=== PATIENT | female | born 1970 | race Caucasian/White ===

== ENCOUNTER 2020-11-12 10:42 | Inpatient (IN) ==
[2020-11-12] MEDS ORDERED: LIDOCAINE 1% 20 ML VIAL INFILTRAT STA (17:37)
[2020-11-12] MEDS ORDERED: SODIUM CHLORIDE 0.9% 1,000 ML IV STA (17:38)
[2020-11-12] MEDS ORDERED: CLINDAMYCIN INJ 600 MG/50 ML PREMIX IV STA (17:38)
[2020-11-12 18:19] LABS: Basophils # 0.1 10*3/uL (0.0-0.2); Basophils % 0.4 % (0.0-0.8); Eosinophils % 0.2 % (0.00-10.9); Hematocrit 45.4 VOL% (35.7-47.0); Hemoglobin 15.2 GM/DL (12.0-16.0); Immature Granulocytes % 0.8 %; Lymphocytes # 1.3 10*3/uL (1.4-4.0); Lymphocytes % 11.1 % (21.3-54.2); Mean Corpuscular HGB Conc 33.5 GM/DL (32-36); Mean Corpuscular Volume 92.7 FL (87-102); Mean Platelet Volume 12.3 FL (9.6-12.0); Monocytes % 9.7 % (1.7-12.7); Neutrophils % 77.8 % (38.7-73.9); Platelet Count 330 T/CUMM (130-400); Red Cell Distribution Width 13.1 % (9.3-17.3); White Blood Count 11.9 T/CUMM (4-12)
[2020-11-12 18:44] LABS: Bilirubin,Total 0.6 MG/DL (0.20-1.00); Calcium 10.5 MG/DL (8.5-10.1); Osmolality,Calculated 294.4 MOS/KG (273-304); Potassium 3.6 MMOL/L (3.5-5.1); Total Protein 7.9 G/DL (6.4-8.2)
[2020-11-12] MEDS ORDERED: INSULIN REGULAR 100 UNIT/ML IV STA ×2 (19:10→21:41)
[2020-11-12 20:14] LABS: ABG Base Excess -6.7 MMOL/L (-2.5-2.5); ABG HCO3 18.2 MMOL/L (20-26); ABG Oxygen Saturation 95.1 % (95-100); ABG PCO2 34.6 MM HG (35-48); ABG PH 7.338 (7.35-7.45); ABG PO2 79.9 MM HG (80-95); ABG TCO2 19.2 MMOL/L (23-27); Allen Test Positive; Pt O2 Delivery Device Room Air
[2020-11-12] MEDS ORDERED: MAGNESIUM SULF RIDER 2 GM/50 ML PREMIX IV PRN (21:03)
[2020-11-12] MEDS ORDERED: SODIUM CHLORIDE 0.9% 1,000 ML IV ONE (21:03)
[2020-11-12] MEDS ORDERED: POTASSIUM CHLORIDE RIDER 10 MEQ/100 ML PREMIX IV PRN (21:03)
[2020-11-12] MEDS ORDERED: DEXTROSE 50% 25 GM/50 ML VIAL IV PRN ×3 (21:03→21:49)
[2020-11-12] MEDS ORDERED: MAGNESIUM SULF RIDER 4 GM/100 ML PREMIX IV PRN (21:03)
[2020-11-12] MEDS ORDERED: SODIUM BICARB INJ 100 MEQ in STERILE WATER INJ 400 ML IV PRN (21:03)
[2020-11-12 21:29] LABS: Albumin 2.9 G/DL (3.4-5.0); Bilirubin,Total 0.5 MG/DL (0.20-1.00); Calcium 10.4 MG/DL (8.5-10.1); Osmolality,Calculated 287.8 MOS/KG (273-304); Total Protein 7.9 G/DL (6.4-8.2)
[2020-11-12] MEDS ORDERED: POTASSIUM CHLORIDE 20 MEQ TABLET PO STA (21:37)
[2020-11-12] MEDS ORDERED: PROMETHAZINE 25 MG/1 ML VIAL IM PRN (21:49)
[2020-11-12] MEDS ORDERED: GLUCAGON 1 MG VIAL IM PRN (21:49)
[2020-11-12] MEDS ORDERED: guaiFENesin/DM ER 600-30 MG TABLET PO PRN (21:49)
[2020-11-12] MEDS ORDERED: NICOTINE 21 MG/24 HR PATCH TRANSDERM PRN (21:49)
[2020-11-12] MEDS ORDERED: ONDANSETRON 4 MG/2 ML VIAL IV PRN (21:49)
[2020-11-12] MEDS ORDERED: diphenhydrAMINE CAP 25 MG CAPSULE PO PRN (21:49)
[2020-11-12] MEDS ORDERED: ZALEPLON 5 MG CAPSULE PO PRN (21:49)
[2020-11-12] MEDS ORDERED: MORPHINE 2 MG/1 ML SYRINGE IV PRN (21:49)
[2020-11-12] MEDS ORDERED: hydrALAZINE 20 MG/1 ML VIAL IV PRN (21:49)
[2020-11-12 22:41] LABS: Osmolality,Calculated 290.5 MOS/KG (273-304); Potassium 3.1 MMOL/L (3.5-5.1)
[2020-11-12] MEDS: SODIUM CHLORIDE 0.9% 1,000 ML IV SCH (23:30)
[2020-11-13] MEDS: CLINDAMYCIN INJ 600 MG/50 ML PREMIX IV SCH ×4 (00:01→18:03)
[2020-11-13 00:52] LABS: Basophils # 0.1 10*3/uL (0.0-0.2); Basophils % 0.5 % (0.0-0.8); Eosinophils # 0.1 10*3/uL (0.0-0.87); Eosinophils % 0.6 % (0.00-10.9); Hematocrit 42.1 VOL% (35.7-47.0); Hemoglobin 14.7 GM/DL (12.0-16.0); Immature Granulocytes % 0.8 %; Lymphocytes # 1.9 10*3/uL (1.4-4.0); Lymphocytes % 16.1 % (21.3-54.2); Mean Corpuscular HGB Conc 34.9 GM/DL (32-36); Mean Corpuscular Volume 91.9 FL (87-102); Mean Platelet Volume 11.9 FL (9.6-12.0); Monocytes % 9.8 % (1.7-12.7); Neutrophils % 72.2 % (38.7-73.9); Platelet Count 308 T/CUMM (130-400); Red Blood Count 4.58 MC/CUMM (3.8-5.5); Red Cell Distribution Width 12.9 % (9.3-17.3)
[2020-11-13 01:04] LABS: Calcium 9.5 MG/DL (8.5-10.1); Osmolality,Calculated 284.5 MOS/KG (273-304); Potassium 3.2 MMOL/L (3.5-5.1)
[2020-11-13] MEDS: SODIUM CHLORIDE 0.9% 1,000 ML IV SCH ×3 (01:25→03:09)
[2020-11-13] MEDS ORDERED: GLUCAGON 1 MG VIAL IM PRN (01:38)
[2020-11-13] MEDS ORDERED: DEXTROSE 50% 25 GM/50 ML VIAL IV PRN (01:38)
[2020-11-13] MEDS ORDERED: HEPARIN 5,000 UNIT/1 ML VIAL SUBCUT SCH (02:00)
[2020-11-13] MEDS: INSULIN GLARGINE 100 UNIT/ML SUBCUT SCH ×2 (02:20→10:36)
[2020-11-13] MEDS: SODIUM CHLORIDE 0.45% 1,000 ML IV SCH ×2 (06:05→13:38)
[2020-11-13 06:37] LABS: Calcium 8.7 MG/DL (8.5-10.1); Osmolality,Calculated 289.8 MOS/KG (273-304); Potassium 3.4 MMOL/L (3.5-5.1)
[2020-11-13] MEDS: INSULIN REGULAR 100 UNIT/ML SUBCUT SCH ×3 (06:45→17:59)
[2020-11-13 09:20] LABS: Calcium 9.1 MG/DL (8.5-10.1); Osmolality,Calculated 279.5 MOS/KG (273-304); Potassium 3.3 MMOL/L (3.5-5.1)
[2020-11-13] MEDS: PANTOPRAZOLE 40 MG TABLET PO SCH (10:37)
[2020-11-13] MEDS: POTASSIUM CHLORIDE 20 MEQ TABLET PO PRN ×2 (12:38→12:44)
[2020-11-13 14:51] LABS: Calcium 9.1 MG/DL (8.5-10.1); Osmolality,Calculated 278.7 MOS/KG (273-304); Potassium 3.2 MMOL/L (3.5-5.1)
[2020-11-13 18:18] LABS: Osmolality,Calculated 283.4 MOS/KG (273-304); Potassium 3.5 MMOL/L (3.5-5.1)
[2020-11-13] MEDS ORDERED: INSULIN LISPRO 100 UNIT/ML SUBCUT SCH (21:00)
[2020-11-13] MEDS ORDERED: INSULIN GLARGINE 100 UNIT/ML SUBCUT STA (22:47)
[2020-11-14] MEDS: SODIUM CHLORIDE 0.45% 1,000 ML IV SCH ×4 (00:37→15:04)
[2020-11-14] MEDS: CLINDAMYCIN INJ 600 MG/50 ML PREMIX IV SCH ×4 (00:37→18:13)
[2020-11-14] MEDS: INSULIN REGULAR 100 UNIT/ML SUBCUT SCH ×5 (00:37→18:13)
[2020-11-14] MEDS: INSULIN LISPRO 100 UNIT/ML SUBCUT SCH ×3 (08:09→16:14)
[2020-11-14] MEDS: LOSARTAN 50 MG TABLET PO SCH (09:05)
[2020-11-14] MEDS: PANTOPRAZOLE 40 MG TABLET PO SCH (09:05)
[2020-11-14] MEDS: INSULIN GLARGINE 100 UNIT/ML SUBCUT SCH (09:06)
[2020-11-14] MEDS: ENOXAPARIN 40 MG/0.4 ML SYRINGE SUBCUT SCH (09:32)
[2020-11-14] MEDS ORDERED: BUPIVACAINE MPF 0.25% 30 ML VIAL ONE (10:31)
[2020-11-14] MEDS ORDERED: LIDOCAINE 1%/EPI INJ 20 ML VIAL ONE (10:31)
[2020-11-14] MEDS: metFORMIN 500 MG TABLET PO SCH ×2 (10:58→20:56)
[2020-11-14] MEDS ORDERED: MIDAZOLAM 2 MG/2 ML VIAL ONE (11:40)
[2020-11-14] MEDS ORDERED: fentaNYL 100 MCG/2 ML VIAL ONE (11:42)
[2020-11-14] MEDS ORDERED: ALBUTEROL/IPRATROPIUM 3 ML NEB RESP TX ONE ×2 (12:14)
[2020-11-14] MEDS ORDERED: SUCCINYLCHOLINE 200 MG/10 ML VIAL ONE (12:17)
[2020-11-14] MEDS ORDERED: LIDOCAINE 2% 5 ML VIAL ONE (12:17)
[2020-11-14] MEDS ORDERED: propofoL 200 MG/20 ML VIAL IV ONE (12:17)
[2020-11-14] MEDS ORDERED: SEVOFLURANE 1 UNIT/15 MINUTE INH ONE (12:17)
[2020-11-15] MEDS: CLINDAMYCIN INJ 600 MG/50 ML PREMIX IV SCH ×5 (00:41→23:20)
[2020-11-15] MEDS: INSULIN REGULAR 100 UNIT/ML SUBCUT SCH ×4 (00:51→17:30)
[2020-11-15] MEDS: SODIUM CHLORIDE 0.45% 1,000 ML IV SCH (02:04)
[2020-11-15 04:55] LABS: Basophils # 0.1 10*3/uL (0.0-0.2); Basophils % 0.7 % (0.0-0.8); Eosinophils # 0.1 10*3/uL (0.0-0.87); Eosinophils % 1.3 % (0.00-10.9); Hematocrit 39.4 VOL% (35.7-47.0); Hemoglobin 13.2 GM/DL (12.0-16.0); Immature Granulocytes % 1.1 %; Immature Granulocytes Absolute 0.08 #; Lymphocytes # 2.3 10*3/uL (1.4-4.0); Lymphocytes % 30.4 % (21.3-54.2); Mean Corpuscular HGB Conc 33.5 GM/DL (32-36); Mean Corpuscular Volume 92.9 FL (87-102); Mean Platelet Volume 12.2 FL (9.6-12.0); Monocytes % 9.1 % (1.7-12.7); Neutrophils % 57.4 % (38.7-73.9); Platelet Count 250 T/CUMM (130-400); Red Blood Count 4.24 MC/CUMM (3.8-5.5); Red Cell Distribution Width 13.1 % (9.3-17.3); White Blood Count 7.6 T/CUMM (4-12)
[2020-11-15 05:13] LABS: Calcium 8.6 MG/DL (8.5-10.1); Osmolality,Calculated 280.7 MOS/KG (273-304); Potassium 2.6 MMOL/L (3.5-5.1)
[2020-11-15] MEDS: POTASSIUM CHLORIDE 20 MEQ TABLET PO PRN ×5 (07:41→23:19)
[2020-11-15] MEDS: LOSARTAN 50 MG TABLET PO SCH (09:08)
[2020-11-15] MEDS: metFORMIN 500 MG TABLET PO SCH ×2 (09:09→20:17)
[2020-11-15] MEDS: PANTOPRAZOLE 40 MG TABLET PO SCH (09:09)
[2020-11-15] MEDS: POTASSIUM CHLORIDE 20 MEQ TABLET PO SCH (09:09)
[2020-11-15] MEDS: INSULIN GLARGINE 100 UNIT/ML SUBCUT SCH (09:11)
[2020-11-15] MEDS: INSULIN LISPRO 100 UNIT/ML SUBCUT SCH ×3 (09:12→16:42)
[2020-11-15] MEDS: ENOXAPARIN 40 MG/0.4 ML SYRINGE SUBCUT SCH (09:13)
[2020-11-16] MEDS: INSULIN REGULAR 100 UNIT/ML SUBCUT SCH ×3 (00:17→12:07)
[2020-11-16] MEDS: CLINDAMYCIN INJ 600 MG/50 ML PREMIX IV SCH (06:43)
[2020-11-16] MEDS ORDERED: SULFAMETHOX/TRIMETHOPRIM 800-160 MG TABLET PO SCH (09:00)
[2020-11-16] MEDS: INSULIN GLARGINE 100 UNIT/ML SUBCUT SCH (10:21)
[2020-11-16] MEDS: INSULIN LISPRO 100 UNIT/ML SUBCUT SCH ×2 (10:22→12:06)
[2020-11-16] MEDS: ENOXAPARIN 40 MG/0.4 ML SYRINGE SUBCUT SCH (10:22)
[2020-11-16] MEDS: POTASSIUM CHLORIDE 20 MEQ TABLET PO SCH (10:23)
[2020-11-16] MEDS: LOSARTAN 50 MG TABLET PO SCH (10:23)
[2020-11-16] MEDS: metFORMIN 500 MG TABLET PO SCH (10:23)
[2020-11-16] MEDS: PANTOPRAZOLE 40 MG TABLET PO SCH (10:29)
[2020-11-16 12:12] VITALS: BP 166/103
== END 2020-11-16 14:43 | disposition home or self-care (01) | DRG 988 ==
LOC: N.ED 10:42 → N.EDINP 21:49 → SUATTDRO 21:49 → N.EDINP 22:50 → N.TELES 23:15
PROVIDERS: ADMIT Internal Medicine; ATTEND Internal Medicine Geriatric Medicine